=== PATIENT | female | born 1930 | race African-American/Black ===

== ENCOUNTER 2018-05-05 10:19 | Emergency (ER) | payer MEDICARE, BC ==
[~2018-05-05] VITALS: Ht 170.2 cm; Wt 69.0 kg
[2018-05-05] MEDS ORDERED: MORPHINE SULFATE 4 MG/ML, 1ML ONE (11:25)
[2018-05-05] MEDS ORDERED: ONDANSETRON 2MG/ML, 2ML ONE (11:25)
[2018-05-05] MEDS: MORPHINE SULFATE 4 MG/ML, 1ML IVPush PRN ×2 (11:28→12:42)
[2018-05-05] MEDS ORDERED: ONDANSETRON 2MG/ML, 2ML IVPush ONE (11:30)
[2018-05-05] MEDS ORDERED: SODIUM CHLORIDE FLUSH 10ML SYR IVF ONE (11:30)
--- NOTE | 2018-05-05 11:32 | NUR ---
PT IN BED ON O2 AND NIBP MONITORING. PT MEDICATED PER ORDER.
[2018-05-05 11:55] LABS: BASOPHILS # (AUTO) 0.01 x10^3/uL (0-0.1); BASOPHILS % (AUTO) 0 % (0-1); EOSINOPHILS # (AUTO) 0.06 x10^3/uL (0-0.4); EOSINOPHILS % (AUTO) 1 % (1-7); LYMPHOCYTES # (AUTO) 1.06 x10^3/uL (1-3.4); LYMPHOCYTES % (AUTO) 15 % (22-44); MD NO; MEAN CORPUSCULAR HEMOGLOBIN 31.9 pg (27.0-34.8); MEAN CORPUSCULAR HGB CONC 33.3 g/dL (32.4-35.8); MEAN CORPUSCULAR VOLUME 95.8 fL (80-100); MEAN PLATELET VOLUME 9.9 fL (7.4-10.4); MONOCYTES # (AUTO) 0.49 x10^3/uL (0.2-0.8); MONOCYTES % (AUTO) 7 % (2-9); NEUTROPHILS # (AUTO) 5.56 x10^3/uL (1.8-6.8); NEUTROPHILS % (AUTO) 77 % (42-75); PLATELET COUNT 191 x10^3/uL (130-400); RED BLOOD COUNT 3.95 x10^6/uL (3.82-5.3); RED CELL DISTRIBUTION WIDTH 12.3 % (9.6-15.2)
[2018-05-05] MEDS ORDERED: PLEASE ENTER ALLERGIES MC SCH (12:00)
[2018-05-05 12:16] LABS: ALKALINE PHOSPHATASE 91 U/L (45-117); BILIRUBIN,TOTAL 0.4 mg/dL (0.2-1.0)
[2018-05-05 12:22] LABS: ALANINE AMINOTRANSFERASE 14 U/L (12-78); ALBUMIN 3.7 g/dL (3.4-5.0); ANION GAP 5 mmol/L (5-15); CALCIUM 8.8 mg/dL (8.5-10.1); CHLORIDE 104 mmol/L (98-107); CREATININE 0.98 mg/dL (0.55-1.02)
--- NOTE | 2018-05-05 12:29 | NUR ---
PT UP TO RESTROOM. NORMALLY AMBULATES WITH A CANE. PT ABLE TO AMBULATE WITH ASSISTANCE. PT AMBULATES WITH A SHUFFLING GAIT.
[2018-05-05] MEDS ORDERED: ASPIRIN 81 MG TABLET CHEW PO ONE (13:00)
[2018-05-05 13:14] LABS: CULTURE INDICATED? YES; MICROSCOPIC INDICATED
[2018-05-05] MEDS ORDERED: LEVO175T2 PO (14:52)
[2018-05-05] MEDS ORDERED: QUET50TA9 PO (14:52)
[2018-05-05] MEDS ORDERED: LOSA100T14 PO (14:52)
[2018-05-05] MEDS ORDERED: DIVA500T4 PO (14:52)
[2018-05-05] MEDS ORDERED: ZOLP-413 PO (14:52)
[2018-05-05] MEDS ORDERED: HYDR-3653 PO (14:52)
[2018-05-05] MEDS ORDERED: CARV12.52 PO (14:52)
[2018-05-05 15:14] VITALS: BP 190/90
--- NOTE | 2018-05-05 16:04 | NUR ---
TASK RN: DC EDUCATION PROVIDED, PT DEMONSTRATES UNDERSTANDING. PT TRANSFERED SELF TO WHEELCHAIR AND WHEELED TO DC WITH SO AND TECH.
== END 2018-05-05 16:06 | disposition home or self-care (01) ==
LOC: ED 13:39
DX: R10.31 Right lower quadrant pain (principal); C64.9 Malignant neoplasm of unspecified kidney, except renal pelvis; I11.0 Hypertensive heart disease with heart failure; I50.9 Heart failure, unspecified; E03.9 Hypothyroidism, unspecified; Z90.89 Acquired absence of other organs
CPT/HCPCS: 36415; 74022; 74177; 80053; 81001; 83605; 83690; 83880; 85025; 87086; 93005; 96374; 96375; 96376; 99284; J2405

== ENCOUNTER 2018-05-06 06:38 | Inpatient (IN) | payer MEDICARE, BC ==
[~2018-05-06] VITALS: Ht 170.2 cm; Wt 68.4 kg
[~2018-05-06 06:38] MED LIST: CARV12.52 PO; DIVA500T4 PO; HYDR-3653 PO; LEVO175T2 PO; LOSA100T14 PO; QUET50TA9 PO; ZOLP-413 PO
--- NOTE | 2018-05-06 06:59 | NUR ---
Report from Carlos PHILLIPS.
[2018-05-06] MEDS ORDERED: SODIUM CHLORIDE FLUSH 10ML SYR IVF ONE (07:00)
[2018-05-06] MEDS ORDERED: SODIUM CHLORIDE 0.9% 1,000ML IVBOLUS ONE (07:00)
[2018-05-06] MEDS ORDERED: ONDANSETRON 2MG/ML, 2ML IVPush ONE (07:00)
[2018-05-06] MEDS ORDERED: HYDROmorphone 1 MG/ML, 1ML ONE ×2 (07:02→08:35)
[2018-05-06] MEDS ORDERED: ONDANSETRON 2MG/ML, 2ML ONE (07:02)
[2018-05-06 07:12] LABS: BASOPHILS # (AUTO) 0.03 x10^3/uL (0-0.1); BASOPHILS % (AUTO) 0 % (0-1); EOSINOPHILS # (AUTO) 0.06 x10^3/uL (0-0.4); EOSINOPHILS % (AUTO) 1 % (1-7); LYMPHOCYTES # (AUTO) 1.23 x10^3/uL (1-3.4); LYMPHOCYTES % (AUTO) 15 % (22-44); MD NO; MEAN CORPUSCULAR HEMOGLOBIN 31.2 pg (27.0-34.8); MEAN CORPUSCULAR HGB CONC 32.7 g/dL (32.4-35.8); MEAN CORPUSCULAR VOLUME 95.2 fL (80-100); MEAN PLATELET VOLUME 9.6 fL (7.4-10.4); MONOCYTES # (AUTO) 0.77 x10^3/uL (0.2-0.8); MONOCYTES % (AUTO) 10 % (2-9); NEUTROPHILS # (AUTO) 6.07 x10^3/uL (1.8-6.8); NEUTROPHILS % (AUTO) 74 % (42-75); PLATELET COUNT 173 x10^3/uL (130-400); RED CELL DISTRIBUTION WIDTH 12.3 % (9.6-15.2)
[2018-05-06] MEDS: HYDROmorphone 1 MG/ML, 1ML IVPush PRN ×2 (07:18→08:41)
[2018-05-06 07:24] LABS: ALANINE AMINOTRANSFERASE 14 U/L (12-78); ALBUMIN 3.5 g/dL (3.4-5.0); ANION GAP 6 mmol/L (5-15); CALCIUM 8.4 mg/dL (8.5-10.1); CHLORIDE 103 mmol/L (98-107); CREATININE 1.09 mg/dL (0.55-1.02)
[2018-05-06 07:26] LABS: ALKALINE PHOSPHATASE 85 U/L (45-117); BILIRUBIN,TOTAL 0.5 mg/dL (0.2-1.0); TOTAL PROTEIN 7.8 g/dL (6.4-8.2)
[2018-05-06] MEDS ORDERED: OMNIPAQUE 350 MG/ML, 100ML BOTTLE ONE (08:32)
--- NOTE | 2018-05-06 08:34 | NUR ---
Patient back from CT.
--- NOTE | 2018-05-06 08:41 | NUR ---
PATIENT RECEIVED 1MG DILAUDID FOR PAIN OF 9/10. WILL CONTINUE TO MONITOR.
[2018-05-06] MEDS ORDERED: MAALOX/HYOSCYAMINE/LIDOCAINE 45 ML BTL PO ONE (09:30)
[2018-05-06] MEDS ORDERED: LEVOTHYROXINE 150 MCG TABLET PO ONE (09:30)
--- NOTE | 2018-05-06 09:38 | NUR ---
[facility] TELEPHONE HAND-OFF REPORT GIVEN TO JACQUELINE GRAYSON.
[2018-05-06] MEDS ORDERED: MAALOX/HYOSCYAMINE/LIDOCAINE 45 ML BTL ONE (09:40)
[2018-05-06] MEDS: LOSARTAN 50MG TABLET PO SCH (10:48)
[2018-05-06 10:53] VITALS: BP 180/72
[2018-05-06] MEDS ORDERED: ACETAMINOPHEN 325 MG TABLET PO PRN (12:00)
[2018-05-06] MEDS ORDERED: ONDANSETRON 2MG/ML, 2ML IVPush PRN (12:00)
[2018-05-06] MEDS ORDERED: ONDANSETRON ODT 4 MG PO PRN (12:00)
[2018-05-06] MEDS: SENNA/DOCUSATE TABLET PO SCH (12:00)
[2018-05-06] MEDS ORDERED: SIMETHICONE DROPS 40 MG/0.6 ML BOTTLE PO PRN (12:00)
[2018-05-06 12:03] VITALS: BP 169/72
[2018-05-06] MEDS: morphine SULFATE 10 MG/ML, 1ML IVPush PRN ×4 (12:20→20:13)
[2018-05-06] MEDS ORDERED: hydrALAzine 20 MG/ML, 1ML IV PRN (13:30)
[2018-05-06 13:37] LABS: INTERNATIONAL NORMALIZED RATIO 1.06 (0.93-1.1); PROTHROMBIN TIME 11.1 Seconds (9.6-11.5)
[2018-05-06 14:23] LABS: MICROSCOPIC AUTO
[2018-05-06 14:24] LABS: CULTURE INDICATED? NO
[2018-05-06] MEDS ORDERED: SODIUM CHLORIDE 0.9% 500 ML IV SCH (15:30)
[2018-05-06 18:41] VITALS: BP 161/56
[2018-05-06] MEDS: CARVEDILOL 12.5 MG TABLET PO SCH (20:07)
[2018-05-06] MEDS ORDERED: QUETIAPINE 100MG TABLET PO SCH (21:00)
[2018-05-06] MEDS ORDERED: DIVALPROEX 500 MG TAB.ER.24H PO SCH (21:00)
[2018-05-07 01:08] VITALS: BP 98/67
[2018-05-07 05:28] LABS: ALANINE AMINOTRANSFERASE 11 U/L (12-78); ALBUMIN 2.8 g/dL (3.4-5.0); ANION GAP 7 mmol/L (5-15); BASOPHILS # (AUTO) 0.02 x10^3/uL (0-0.1); BASOPHILS % (AUTO) 0 % (0-1); CALCIUM 7.9 mg/dL (8.5-10.1); CHLORIDE 105 mmol/L (98-107); CREATININE 0.88 mg/dL (0.55-1.02); EOSINOPHILS # (AUTO) 0.08 x10^3/uL (0-0.4); EOSINOPHILS % (AUTO) 1 % (1-7); LYMPHOCYTES # (AUTO) 1.32 x10^3/uL (1-3.4); LYMPHOCYTES % (AUTO) 21 % (22-44); MD NO; MEAN CORPUSCULAR HEMOGLOBIN 32.4 pg (27.0-34.8); MEAN CORPUSCULAR HGB CONC 33.8 g/dL (32.4-35.8); MEAN CORPUSCULAR VOLUME 96.1 fL (80-100); MEAN PLATELET VOLUME 9.9 fL (7.4-10.4); MONOCYTES # (AUTO) 0.86 x10^3/uL (0.2-0.8); MONOCYTES % (AUTO) 14 % (2-9); NEUTROPHILS # (AUTO) 3.89 x10^3/uL (1.8-6.8); NEUTROPHILS % (AUTO) 63 % (42-75); PLATELET COUNT 132 x10^3/uL (130-400); RED BLOOD COUNT 3.35 x10^6/uL (3.82-5.3); RED CELL DISTRIBUTION WIDTH 12.4 % (9.6-15.2)
[2018-05-07 05:31] LABS: ALKALINE PHOSPHATASE 61 U/L (45-117); BILIRUBIN,TOTAL 0.4 mg/dL (0.2-1.0); TOTAL PROTEIN 6.2 g/dL (6.4-8.2)
[2018-05-07] MEDS ORDERED: LEVOTHYROXINE 175 MCG TABLET PO SCH (06:00)
[2018-05-07 06:50] VITALS: BP 190/81
[2018-05-07] MEDS ORDERED: PANTOPRAZOLE 40 MG IV IVPush SCH (07:30)
[2018-05-07] MEDS: CARVEDILOL 12.5 MG TABLET PO SCH (07:42)
[2018-05-07] MEDS: SENNA/DOCUSATE TABLET PO SCH (07:42)
[2018-05-07] MEDS: LOSARTAN 50MG TABLET PO SCH (07:43)
[2018-05-07 07:48] VITALS: BP 185/75
[2018-05-07 12:08] VITALS: BP 159/77
[2018-05-07] MEDS ORDERED: AMLODIPINE 5 MG TABLET PO SCH (12:30)
[2018-05-07] MEDS ORDERED: AMLO-150 PO ×2 (13:19→13:26)
== END 2018-05-07 14:40 | disposition home or self-care (01) | DRG 699 ==
LOC: ED 06:56 → EDIP 09:09 → 3NW 10:11 → DCLOUNGE 05-07 14:25
PROVIDERS: ADMIT Internal Medicine; ATTEND Internal Medicine
DX: N28.89 Other specified disorders of kidney and ureter (principal); D62 Acute posthemorrhagic anemia; I70.1 Atherosclerosis of renal artery; I11.0 Hypertensive heart disease with heart failure; E03.9 Hypothyroidism, unspecified; E86.0 Dehydration; F32.9 Major depressive disorder, single episode, unspecified; F41.9 Anxiety disorder, unspecified; I50.9 Heart failure, unspecified; K44.9 Diaphragmatic hernia without obstruction or gangrene; R10.13 Epigastric pain; M62.84 Sarcopenia; N28.1 Cyst of kidney, acquired; Z66 Do not resuscitate; Z85.528 Personal history of other malignant neoplasm of kidney; Z90.49 Acquired absence of other specified parts of digestive tract
CPT/HCPCS: 36415; 71045; 74174; 76770; 80053; 81001; 82150; 83605; 83690; 84443; 85014; 85018; 85025; 85610; 96374; 96375; 96376; G0378; J1170; J2405; Q9967; C9113; J0360; J2270; J7030; J7040